=== PATIENT | female | born 1960 | race Two or more races ===

== ENCOUNTER → 2016-11-09 | Outpatient (CLI) | payer MEDICARE, MEDICAID ==
--- NOTE | ~2016-11-09 | NDGEN ---
PATIENT'S NAME: CARLITOS PIERRE [facility] AGE: 56 Y [address] ROOM: [place] [address] LOCATION: [facility] ADMIT DATE: 11/09/2016 Neurodiagnostics DISCHARGE DATE: FAMILY PHYSICIAN: Jennifer Crump MD ATTENDING PHYSICIAN: Jennifer Crump DATE OF PROCEDURE: 11/09/2016 A nerve conduction study of the bilateral upper extremities and EMG of the right upper extremity. INDICATION: This is a female patient who has symptoms only in the left hand of numbness and tingling into the tips of all the fingers. There does not seem to be any swelling or tenderness of the wrist. The patient may have symptoms of carpal tunnel syndrome, however, the numbness again is relegated to all the fingers. There are no symptoms of pain into the forearm or into the upper arm. DESCRIPTION: Nerve conduction studies were performed in the median and ulnar motor and sensory nerves. There were normal motor onset latencies seen in the median and ulnar nerves with normal amplitudes and normal nerve conduction velocities. Next, a needle was placed into the left APB (abductor pollicis brevis) muscle to look for any abnormalities suggestive of more events of carpal tunnel syndrome. The patient had normal recruitment of motor unit action potentials with normal sizes of these motor unit action potentials. There were no evidence of any abnormal fibrillation potentials or positive sharp waves. IMPRESSION: These nerve conduction studies of the bilateral upper extremities were completely normal and did not show evidence to support a focal neuropathy, and there was insufficient evidence to support a median neuropathy at the left wrist. It should be noted that the patient's symptoms of when she initially had numbness with a cool temperature to her hands did display some slowing of conduction initially and was a bit more symptomatic at that time, perhaps the cooling of the hands may have something to do with the patient having numbness, seemed to be improved with warming of the patient's hands. PATIENT'S NAME: CARLITOS PIERRE [facility] AGE: 56 Y [address] ROOM: [place] [address] LOCATION: [facility] ADMIT DATE: 11/09/2016 Neurodiagnostics DISCHARGE DATE: FAMILY PHYSICIAN: Jennifer Crump MD ATTENDING PHYSICIAN: Jennifer Crump MD KIMBERLY FERMIN/kourtney /[id number] dtt: 11/24/16 1345 LUISA JASON R. dtd: 11/09/16 2014
== END | disposition disaster alternative care site (69) ==
LOC: GNEU 14:38
DX: E11.9 Type 2 diabetes mellitus without complications (principal); R20.0 Anesthesia of skin

== ENCOUNTER → 2017-02-05 | Outpatient (CLI) | payer MEDICARE, MEDICAID ==
[2017-02-05 09:27] LABS: ALBUMIN 2.9 gm/dL (3.5-5.0); ALK PHOS 98 IU/L (33-138); ALT 15 IU/L (12-78); ANION GAP 11.8 (10.0-19.0); AST 9 IU/L (10-40); BLOOD UREA NITROGEN 10 mg/dL (6-24); CALCIUM 7.9 mg/dL (8.5-10.5); CHLORIDE 109 mMol/L (96-110); CO2 25 mMol/L (22-32); CREATININE 0.5 mg/dL (0.5-1.1); ESTIMATED GFR (MDRD EQUATION) > 60; POTASSIUM 3.8 mMol/L (3.7-5.1); SODIUM 142 mMol/L (135-145); TOTAL BILIRUBIN 0.3 mg/dL (0.0-1.5); TOTAL PROTEIN 6.6 g/dL (6.0-8.4)
== END | disposition disaster alternative care site (69) ==
LOC: LNHI 09:10
PROVIDERS: Internal Medicine Interventional Cardiology
DX: E78.2 Mixed hyperlipidemia (principal); I63.9 Cerebral infarction, unspecified; I10 Essential (primary) hypertension